=== PATIENT | female | born 2005 | race Caucasian/White ===

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

== ENCOUNTER 2023-01-07 22:48 | Emergency (ER) | payer MEDICAID, SELFPAY ==
--- NOTE | 2023-01-07 22:45 | DI.CT_ITS ---
Exam(s) CT ABDOMEN PELVIS CTA EXAM: CT ABDOMEN PELVIS CTA CLINICAL HISTORY: LLQ pain, eval for ovarian torsion. TECHNIQUE: Imaging Protocol: Axial computed tomography images with coronal and sagittal reformatted images were created and reviewed CONTRAST MATERIAL: Intravenous: Omnipaque 350 Contrast volume:100 ml Oral: None COMPARISON: CT CT ABDOMEN PELVIS W from 08/11/2022 FINDINGS: ABDOMEN: Lung bases: No infiltrates nor pleural effusions. AORTA: There is no evidence of abdominal aortic aneurysm nor dissection.There is no aneurysmal dilatation no r stenosis of the common and external iliac arteries.The celiac and superior mesenteric arteries are patent.Inferior mesenteric artery is patent. No significant atherosclerotic disease nor fibromuscula r dysplasia evident in the renal arteries. Internal iliac arteries are patent. Common femoral arteries unremarkable. Visualized proximal SFA a rteries are patent. There is no ascites. LIVER: There are no focal hepatic lesions nor dilatation of intrahepatic ducts. GALLBLADDER/BILIARY: No obvious gallbladder pathology. CBD is not dilated. PANCREAS: No evidence of pancreatic mass nor dilatation of the pancreatic duct. SPLEEN: Spleen is not enlarged. There are no intrasplenic lesions. ADRENALS: No significant findings KIDNEYS: No cysts evident. No calculi nor hydronephrosis. No solid renal masses. ABDOMINAL AORTA: The abdominal aorta is not enlarged. LYMPH NODES: There is no retroperitoneal nor para-aortic adenopathy. No obvious mesenteric masses. ABDOMINAL WALL: No evidence of significant anterior abdominal wall hernia. GI: There is no evidence of bowel obstruction, free air, nor abscess. PELVIS: LYMPH NODES: There is no intrapelvic nor inguinal adenopathy. GI: The appendix is surgically absent.No evidence of sigmoid diverticulitis. URINARY BLADDER: Collapsed. No obvious calculi nor masses. REPRODUCTIVE: There is now an IUD in satisfactory position in the endometrial canal. Uterus is antev erted. Small follicular cysts noted in the right ovary. Larger cysts noted in the left ovary, with largest measuring approximately 3.5 x 2.5 cm. There is mild streaking in the low pelvic fat, not pre viously present. No free fluid. No obvious extra ovarian abscess. OSSEOUS: No significant osseous lesions. No fractures. IMPRESSION: 1. Compared to the prior CT scan of 08/11/2022 there has been interval placement of an IUD which appe ars to be in satisfactory position in the endometrial canal. 2. The previously present extra uterine IUD in the left side of the pelvis seen on CT scan of 023 has been removed 3. There is some deep pelvic fat streaking without a distinct abscess. Possibly related to recent clayton rgical procedure versus element of pelvic inflammatory disease, given the recent history here. 4. Multi septated left ovarian cysts, largest measuring 3.5 x 2.5 cm, not previously present. Requir es follow-up. Right adnexa unremarkable. 5. The CTA part of the study reveals unremarkable abdominal aorta and aortoiliac arterial vascular s egments. RADIATION DOSE DELIVERED: Total DLP DATA REPOSITORY: All CT scans at this facility are submitted to the National Radiology Data Registry (NRDR) Dose Index Registry (DIR) with the [employer] (ACR). RADIATION OPTIMIZATION: All CT scans at this facility use at least one of these dose optimization te chniques: automated exposure control; mA and/or kV adjustment per patient size (includes targeted exa ms where dose is matched to clinical indication); or iterative reconstruction.
[2023-01-07 22:50] VITALS: BP 160/106; PULSE 120; RESP 18; TEMP 36.7; O2SAT 97
--- NOTE | 2023-01-07 22:57 | ED.GENADUL_ITS ---
Discharge Plan Disposition Patient Disposition: Home Discharge Details Chief Complaint: Abd Prob Clinical Impression: Cyst of left ovary Primary Care Provider: Unknown,Unknown ED Provider: Andres Vu Home Meds and New Rx's Prescriptions: No Action No Known Home Meds Discharge Instructions Instructions: Ovarian Cyst (ED) Additional Instructions: At this time your CT scan has returned and shows evidence of an ovarian cyst that is likely causing your pain. The remainder of your work-up is reassuring. Please drink plenty of fluids and stay well-hydrated. Please take 1000 mg of Tylenol every 6 hours and 800 mg of Motrin every 6 hours to help with the inflammation and pain. These are the maximum doses. If you notice any worsening of your symptoms, or any new symptoms such as vomiting, diarrhea, fever, chills, shortness of breath, chest pain, numbness, weakness, or fainting , please return immediately to the emergency department for reevaluation. Please follow up with your primary care provider as soon as possible for reassessment and reevaluation. As always, it was a pleasure participating in your medical care today. Referrals: Renee Swenson DO [OSTEOPATHIC DOCTOR] - Medical Decision Making 17-year-old female with past medical history of an IUD that was surgically removed after it pathologically migrated out of her uterus into her pelvis, past surgery was on 10/25/22, she presents today for left lower quadrant pain. IUD was replaced during time of surgery. Patient had been doing very well, however yesterday she developed sudden onset left lower quadrant pain. It is sharp in nature, it comes and goes in severity but it is constantly there. She did have a few episodes of vomiting yesterday. It may or may not have been related to the pain. Symptoms continued today into tonight, and have been worsening throughout the day. She denies any diarrhea, vaginal discharge or bleeding, chest pain or shortness of breath. She denies any fever or chills. No history of STDs. She is sexually active with her partner. No urinary complaints. No history of kidney stones. No other complaints at this time. Pain is made worse with palpation of the abdomen. Improved by nothing. Exam demonstrates tenderness in the left lower quadrant of the abdomen. Is also mild to moderate left sided pelvic tenderness. Concern for potential ovarian cyst, torsion is of concern but less likely. Possible repeat migration is also of concern. We will get a CT scan of the abdomen, treat the patient's pain, gently rehydrate, monitor closely and reassess. 12:[address] scan returned and has shown evidence of a septated cyst over the left ovary which is clinically consistent with a cause of her pain. No clinical evidence of torsion. Symptoms clinically inconsistent with torsion. Patient is feeling much better. Urinalysis negative for infection. No other abnormalities otherwise. Mild elevated platelet level, however this appears to be her baseline. Patient otherwise stable. Symptoms consistent with ovarian cyst causing pain. No evidence of diverticulitis, torsion, migrated intrauterine device. Patient stable for discharge. Will recommend NSAIDs at home. Discussed red flags for which to return. I have extensively reviewed the treatment plan and discharge instructions with the patient. I have addressed all patient concerns at this time. The patient was made aware of what symptoms to monitor for that would warrant a return to the emergency department. Discussed the plan with the patient, they demonstrate verbal understanding and agreement with our assessment and plan at this time. The documentation in this chart was dictated using [employer] dictation software. Please excuse any dictation errors. FINDINGS: Aorta: No aortic aneurysm or dissection. Celiac trunk and mesenteric arteries: No occlusion or significant stenosis. Renal arteries: No occlusion or significant stenosis. Right iliac arteries: No occlusion or significant stenosis. Left iliac arteries: No occlusion or significant stenosis. Liver: No mass. Gallbladder and bile ducts: Unremarkable. No calcified stones. No ductal dilation. Pancreas: Unremarkable. No mass. No ductal dilation. Spleen: Unremarkable. No splenomegaly. Adrenal glands: Unremarkable. No mass. Kidneys and ureters: Unremarkable. No solid mass. No hydronephrosis. Stomach and bowel: No dilated loops of small bowel or colonic dilatation. Appendix: Prior appendectomy. Intraperitoneal space: No free intraperitoneal gas or ascites. Lymph nodes: Unremarkable. No enlarged lymph nodes. Urinary bladder: Unremarkable. No mass. Reproductive: IUD appears satisfactorily positioned in anteverted uterus. Septated left ovarian cyst or cysts in apposition in it, measure up to 3.5 cm in longitudinal, conglomerate measurement. Bones/joints: Mild convex left scoliosis of thoracolumbar spine. Soft tissues: Unremarkable. IMPRESSION: 1. No aortic aneurysm or dissection. 2. No mesenteric, renal or iliac arterial occlusive disease. 3. Septated cysts or 2 cysts in apposition in left ovary measuring up to 3.5 cm in conglomerate. Thank you for allowing us to participate in the care of your patient. Dictated and Authenticated by: Tommy Eckert DO 01/08/2023 12:01 AM Eastern Time ([place] & [place]) HPI General Date/Time Provider Initiated Documentation: 01/07/23 22:49 . HPI Narrative: 17-year-old female with past medical history of an IUD that was surgically removed after it pathologically migrated out of her uterus into her pelvis, past surgery was on 10/25/22, she presents today for left lower quadrant pain. IUD was replaced during time of surgery. Patient had been doing very well, however yesterday she developed sudden onset left lower quadrant pain. It is sharp in nature, it comes and goes in severity but it is constantly there. She did have a few episodes of vomiting yesterday. It may or may not have been related to the pain. Symptoms continued today into tonight, and have been worsening throughout the day. She denies any diarrhea, vaginal discharge or bleeding, chest pain or shortness of breath. She denies any fever or chills. No history of STDs. She is sexually active with her partner. No urinary complaints. No history of kidney stones. No other complaints at this time. Pain is made worse with palpation of the abdomen. Improved by nothing. Related Data Home Medications Medication Instructions Recorded Confirmed Unknown [No Known Home Meds] 01/07/23 01/07/23 Allergies Allergy/AdvReac Type Severity Reaction Status Date / Time No Known Allergies Allergy Unverified 01/07/23 23:29 General Stated Complaint: Abd Prob KATHLEEN: 3 Review of Systems All systems reviewed & are unremarkable except as noted in HPI and below PFSH All Active Problems (Updated 01/08/23 @ 00:10 by Andres Vu DO) Cyst of left ovary (Acute) Depression (Acute) Pt reports depression since childhood into teens years and now as a young adult. Anxiety (Acute) Partner relationship problem (Acute) Reported 11/07/22 no longer in relationship with Claude, father of their child Alexandria. Shared Claude has moved out of her apartment as of yesterday. Incisional infection (Acute) Medical History Presence of IUD New Mirena IUD placed in OR 10/25/22 Malpositioned IUD IUD in pelvis - incidental finding in ED Removed surgically 10/25/22 Migraine Postprandial RUQ pain Surgical History History of laparoscopy For removal of perforated IUD - found on the left pelvic side wall on top of the iliac vessels. Easily removed. 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 Date GA/Weeks # Preg Succ Route Wgt Sex Labor Lgth Anesth esia Location Prov Complic 01/17/22 40 Yes vaginal 3883.885 g Female NVR H Delivery Date: 01/17/22 Last Updated by: Trice Ibrahim Exam Narrative Exam Narrative: 1.Const: Well-nourished, Well-developed, appearing stated age 2.Eyes: PERRL, no conjunctival injection, and symmetrical lids. 3.ENT: Atraumatic external nose and ears. Moist MM. Neck: Symmetric, trachea midline, No thyromegaly. 4.CVS: +S1/S2, No murmurs or gallops. Peripheral pulses 2+ and equal in all extremities. Brisk capillary refill in all extremities. 5.RESP: Unlabored respiratory effort. Clear to auscultation bilaterally. No wheezes rales or rhonchi 6.GI: Soft, nondistended. No guarding. Notable tenderness in the left lower quadrant. Negative Small sign. No pain at McBurney's point. Negative obturator and psoas sign. Negative heel strike test. No flank tenderness. Left pelvic pain is also noted, and seems to be slightly worse than the left lower quadrant abdominal pain. 7.MSK: Normocephalic/Atraumatic, Extremities w/o deformity or ttp No cyanosis or clubbing, Normal movement of all extremities 8.Skin: Warm, Dry. No rashes or lesions. 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 Sensation grossly intact, no focal neurologic deficits. 10.Psych: (AAO) x3. Appropriate mood and affect Course Vital Signs Vital signs: Vital Signs Temperature 36.7 C 01/07/23 22:50 Pulse 120 H 01/07/23 22:50 Respiratory Rate 18 01/07/23 22:50 Blood Pressure 160/106 H 01/07/23 22:50 Pulse Oximetry 97 01/07/23 22:50 Temperature 36.7 C 01/07/23 22:50 Temperature Source Temporal Artery Scan 01/07/23 22:50 Pulse 120 H 01/07/23 22:50 Respiratory Rate 18 01/07/23 22:50 Respiratory Effort Normal, Non-Labored 01/07/23 22:55 Blood Pressure 160/106 H 01/07/23 22:50 Blood Pressure Position Sitting 01/07/23 22:50 Pulse Oximetry 97 01/07/23 22:50 Oxygen Delivery Method Room Air 01/07/23 22:50 Oxygen Flow Rate 0 01/07/23 22:50 Pain Level 5 01/07/23 22:50 Comment has not taken anything for pain 01/07/23 22:50
[2023-01-07 23:05] LABS: Lactate 0.9 mmol/L (0.6-1.4)
[2023-01-07 23:09] LABS: Abs Immature Grans 0.02 10^3/uL (0.0-0.06); Absolute Basophil Count 0.09 10^3/uL (0.0-0.2); Absolute Eosinophil Count 0.17 10^3/uL (0.0-0.7); Absolute Monocyte Count 0.63 10^3/uL (0.1-0.8); Basophils % 0.8; Eosinophils % 1.5; HCT 41.2 % (36.0-46.0); HGB 13.4 g/dL (11.2-15.7); Immature Grans % 0.2; Lymphocytes % 22.8; MCH 26.9 pg (27.0-33.0); MCHC 32.5 % (32.0-36.0); MCV 83 fL (80-95); MPV 8.7 fL (8.0-11.0); Monocytes % 5.7; Platelet Count 489 10^3/uL (130-400); RBC 4.98 10^6/uL (3.93-5.22); RDW 14.8 % (11.7-14.6); RDW-SD 44.2 fL; WBC 11.12 10^3/uL (4.4-10.8)
[2023-01-07 23:10] LABS: Absolute Lymphocyte Count 2.54 10^3/uL (1.2-3.4); Absolute Neutrophil Count 7.67 10^3/uL (1.2-6.7)
[2023-01-07 23:15] LABS: Bilirubin Negative (Negative); Blood Negative (Negative); Clarity Clear (Clear); Glucose Negative (Negative); Ketones Negative (Negative); Leukocyte Esterase Negative (Negative); Nitrite Negative (Negative); Urobilinogen 0.2 mg/dL (Up to 0.2)
[2023-01-07] MEDS: Ketorolac 15 MG/ML VIAL IVP (23:22)
[2023-01-07] MEDS: Ondansetron 4 MG/2 ML VIAL IVP (23:22)
[2023-01-07] MEDS: Normal Saline 1,000 ML 1000 ML IV (23:22)
[2023-01-07 23:23] VITALS: BP 133/77; PULSE 98; RESP 16; TEMP 36.7; O2SAT 98
[2023-01-07] MEDS: Omnipaque 350 MG/ML 100 ML BTL IJ (23:23)
[2023-01-07 23:24] VITALS: BP 133/77; PULSE 98; RESP 16; O2SAT 98
[2023-01-07] MEDS: Normal Saline - Diluent 50 ML VIAL IJ (23:24)
[2023-01-07] MEDS: Normal Saline Flush 10 ML SYR IVP (23:25)
[2023-01-07 23:29] LABS: ALT 26 U/L (14-59); AST 18 U/L (15-37); Alkaline Phosphatase 96 U/L (46-116); Anion Gap 8.2 mmol/L (3-11); BUN 11 mg/dL (7-18); Bilirubin, Total 0.5 mg/dL (0.2-1.0); CO2 25.8 mmol/L (21.0-32.0); CREATININE 0.8 mg/dL (0.55-1.02); Calcium 9.7 mg/dL (8.5-10.1); Chloride 102 mmol/L (98-107); Estimated GFR 108.78 (mL/min/1.73m2); Glucose 107 mg/dL (74-106); Potassium 3.7 mmol/L (3.5-5.1); Sodium 136 mmol/L (136-145); Total Protein 8.5 g/dL (6.4-8.2)
--- NOTE | 2023-01-08 00:02 | DI.VRAD_ITS ---
PROCEDURE INFORMATION: Exam: CTA Abdomen and Pelvis With Contrast Exam date and time: 01/07/2023 11:33 PM Age: 17 years old Clinical indication: Abdominal pain; Localized; Left lower quadrant (llq); Prior surgery; Surgery date: 1-6 months; Surgery type: Appendectomy and surgery due to iud perforated; Patient HX: Llq pain. Eval for torsion TECHNIQUE: Imaging protocol: Computed tomographic angiography of the abdomen and pelvis with contrast. Exam focused on the arteries. 3D rendering (Not supervised by radiologist): MIP and/or 3D reconstructed images were created by the technologist. Radiation optimization: All CT scans at this facility use at least one of these dose optimization techniques: automated exposure control; mA and/or kV adjustment per patient size (includes targeted exams where dose is matched to clinical indication); or iterative reconstruction. Contrast material: OMNIPAQUE 350; Contrast volume: 100 ml; Contrast route: INTRAVENOUS (IV); COMPARISON: CT ABDOMEN PELVIS W 08/11/2022 12:32 AM FINDINGS: Aorta: No aortic aneurysm or dissection. Celiac trunk and mesenteric arteries: No occlusion or significant stenosis. Renal arteries: No occlusion or significant stenosis. Right iliac arteries: No occlusion or significant stenosis. Left iliac arteries: No occlusion or significant stenosis. Liver: No mass. Gallbladder and bile ducts: Unremarkable. No calcified stones. No ductal dilation. Pancreas: Unremarkable. No mass. No ductal dilation. Spleen: Unremarkable. No splenomegaly. Adrenal glands: Unremarkable. No mass. Kidneys and ureters: Unremarkable. No solid mass. No hydronephrosis. Stomach and bowel: No dilated loops of small bowel or colonic dilatation. Appendix: Prior appendectomy. Intraperitoneal space: No free intraperitoneal gas or ascites. Lymph nodes: Unremarkable. No enlarged lymph nodes. Urinary bladder: Unremarkable. No mass. Reproductive: IUD appears satisfactorily positioned in anteverted uterus. Septated left ovarian cyst or cysts in apposition in it, measure up to 3.5 cm in longitudinal, conglomerate measurement. Bones/joints: Mild convex left scoliosis of thoracolumbar spine. Soft tissues: Unremarkable. IMPRESSION: 1. No aortic aneurysm or dissection. 2. No mesenteric, renal or iliac arterial occlusive disease. 3. Septated cysts or 2 cysts in apposition in left ovary measuring up to 3.5 cm in conglomerate. Dictated and Authenticated by: Tommy Eckert MD. Ordering:JACOBO Campos MD
[2023-01-08 00:22] VITALS: BP 127/72; PULSE 92; RESP 14; O2SAT 98
== END 2023-01-08 00:25 | disposition home or self-care (01) ==
PROVIDERS: Emergency Provider Student in an Organized Health Care Education/Training Program
DX: R10.32 Left lower quadrant pain (principal); N83.202 Unspecified ovarian cyst, left side; R11.10 Vomiting, unspecified
CPT/HCPCS: 36415; 80053; 81025; 96361; 96374; 96375; 96376; 99285; 74174; 81003; 83605; 85025; 99284; J1885; J2405; J3490